=== PATIENT | male | born 1970 | race Caucasian/White ===

== ENCOUNTER 2019-02-14 16:10 | Emergency (ER) | payer SELFPAY ==
[~2019-02-14] VITALS: Ht 180.3 cm; Wt 72.0 kg
[2019-02-14 16:25] VITALS: BP 142/96
== END 2019-02-14 18:14 | disposition left against medical advice (07) ==
LOC: ER 16:10
DX: Z53.21 Procedure and treatment not carried out due to patient leaving prior to being seen by health care provider (principal)